=== PATIENT | female | born 1960 | race Caucasian/White ===

== ENCOUNTER 2023-03-24 14:28 | Emergency (ER) | payer MEDICARE, BC ==
[2023-03-24] MEDS ORDERED: methylPREDNISolone Sod Succ/PF 125 MG/2 ML VIAL ONE (14:59)
[2023-03-24] MEDS ORDERED: Famotidine/PF 20 mg/2ml Vial ONE (14:59)
== END 2023-03-24 16:53 | disposition home or self-care (01) ==
LOC: ERS 14:28
DX: T78.40XA Allergy, unspecified, initial encounter (principal); L50.9 Urticaria, unspecified; E78.5 Hyperlipidemia, unspecified; I10 Essential (primary) hypertension; Z79.899 Other long term (current) drug therapy
CPT/HCPCS: 96374; 96375; J2930; S0028